=== PATIENT | male | born 1950 | race Caucasian/White ===

== ENCOUNTER 2023-01-22 21:47 | Inpatient (IN) | payer MEDICARE, SELFPAY ==
[~2023-01-22 21:47] MED LIST: Iopamidol-370 76% 500 ML MDV (1 ML CHARGE) ONE
[2023-01-22] MEDS ORDERED: fentaNYL 50 mcg/mL 1 mL Vial ONE (22:01)
[2023-01-22 22:05] LABS: #Monocytes 0.8 thou/uL (0.11-0.59); #Neutrophils 7.4 thou/uL (1.40-6.50); %Basophils 0.2 % (0.0-1.0); %Eosinophils 0.4 % (0.0-10.0); %Lymphocytes 7.8 % (21.0-51.0); %Monocytes 8.6 % (0.0-10.0); %Neutrophils 82.7 % (42.0-75.0); Hematocrit 29.1 % (42.0-52.0); Hemoglobin 9.6 g/dL (14.0-18.0); Mean Corpuscular Hemoglobin 28.4 pg (27.0-31.0); Mean Corpuscular Volume 86.1 fl (78.0-98.0); Platelet Count 269 10x3/uL (130-400); RBC Distribution Width 13.8 % (11.5-14.5); Red Blood Cell (RBC) Count 3.38 mill/uL (4.70-6.10)
[2023-01-22 22:16] LABS: INR-International Normal Ratio 2.4; PTT 33.3 sec (22.9-36.1); Prothrombin Time 27.4 sec (12.0-14.7)
[2023-01-22 22:27] LABS: ALT (SGPT) 11 U/L (8-55); AST (SGOT) 28 U/L (5-34); Albumin 3.5 g/dL (3.4-4.8); Alkaline Phosphatase 74 U/L (40-110); Anion Gap 18 mmol/L (10-20); BUN (Urea Nitrogen) 17 mg/dL (8.4-25.7); Bilirubin, Total 0.8 mg/dL (0.2-1.2); Calc. Creatinine Clearance 0 mL/min (70-130); Calcium 9.3 mg/dL (7.8-10.44); Carbon Dioxide 20 mmol/L (23-31); Chloride 104 mmol/L (98-107); Estimated GFR 64; Globulin 3.3 g/dL (2.4-3.5); Glucose 111 mg/dL (80-115); Potassium 3.8 mmol/L (3.5-5.1); Protein, Total 6.8 g/dL (5.8-8.1); Sodium 138 mmol/L (136-145)
[2023-01-23] MEDS ORDERED: HumaLOG 300 UNITS/3 ML VIAL SC PRN (00:11)
[2023-01-23] MEDS ORDERED: Glucagon 1 MG/ML KIT IM PRN (00:11)
[2023-01-23] MEDS ORDERED: Ondansetron PF 4 MG/2 ML Vial IVP PRN (00:11)
[2023-01-23] MEDS ORDERED: Dextrose 5% in Water 1,000 ML IV PRN (00:11)
[2023-01-23] MEDS ORDERED: Ipratropium/Albuterol 3 ML NEB NEB PRN ×2 (00:11→00:15)
[2023-01-23] MEDS ORDERED: Dextrose 50% Abboject 50 ML SYRINGE SLOW IVP PRN (00:11)
[2023-01-23] MEDS ORDERED: Sodium Chloride 0.9% 1,000 ML IV SCH (00:15)
[2023-01-23] MEDS ORDERED: Magnesium 2 GM/50 ML BAG (IN WATER) ONE (00:48)
[2023-01-23] MEDS: Morphine 2 MG/ML VIAL SLOW IVP PRN ×2 (01:49→20:52)
[2023-01-23 02:52] VITALS: BMI 26.3
[2023-01-23] MEDS: Acetaminophen 500 MG TAB PO SCH ×4 (05:34→23:34)
[2023-01-23] MEDS: traMADol HCl 50 MG TAB PO SCH ×4 (05:35→23:34)
[2023-01-23 06:12] LABS: #Eosinphils 0.1 thou/uL (0.0-0.7); #Monocytes 0.6 thou/uL (0.11-0.59); #Neutrophils 2.8 thou/uL (1.40-6.50); %Basophils 0.4 % (0.0-1.0); %Eosinophils 2.5 % (0.0-10.0); %Lymphocytes 21.3 % (21.0-51.0); %Monocytes 12.8 % (0.0-10.0); %Neutrophils 62.8 % (42.0-75.0); Hematocrit 26.5 % (42.0-52.0); Hemoglobin 8.6 g/dL (14.0-18.0); Mean Corpuscular HGB CONC 32.5 g/dL (32.0-36.0); Mean Corpuscular Hemoglobin 28.7 pg (27.0-31.0); Mean Corpuscular Volume 88.3 fl (78.0-98.0); Mean Platelet Volume 9.5 fL (7.4-10.4); Platelet Count 211 10x3/uL (130-400); RBC Distribution Width 13.9 % (11.5-14.5); White Blood Cell (WBC) Count 4.5 10x3/uL (4.8-10.8)
[2023-01-23 06:38] LABS: Phosphorus 4.3 mg/dL (2.3-4.7)
[2023-01-23 06:39] LABS: Anion Gap 14 mmol/L (10-20); BUN (Urea Nitrogen) 15 mg/dL (8.4-25.7); Calc. Creatinine Clearance 81 mL/min (70-130); Calcium 8.7 mg/dL (7.8-10.44); Carbon Dioxide 20 mmol/L (23-31); Chloride 107 mmol/L (98-107); Estimated GFR 71; Glucose 64 mg/dL (80-115); Magnesium 1.5 mg/dL (1.6-2.6); Potassium 3.6 mmol/L (3.5-5.1); Sodium 137 mmol/L (136-145)
[2023-01-23] MEDS: Famotidine 20 MG TAB PO SCH ×2 (09:14→20:49)
[2023-01-23] MEDS: Senokot S 8.6-50 MG TAB PO SCH ×2 (09:14→20:49)
[2023-01-24] MEDS: traMADol HCl 50 MG TAB PO SCH ×4 (05:16→22:30)
[2023-01-24] MEDS: Acetaminophen 500 MG TAB PO SCH ×4 (05:16→22:31)
[2023-01-24] MEDS: Senokot S 8.6-50 MG TAB PO SCH ×2 (08:49→21:43)
[2023-01-24] MEDS: Famotidine 20 MG TAB PO SCH ×2 (08:49→21:43)
[2023-01-24] MEDS: Cyclobenzaprine 10 MG TAB PO PRN (21:43)
[2023-01-25] MEDS: Acetaminophen 500 MG TAB PO SCH ×4 (06:06→22:17)
[2023-01-25] MEDS: traMADol HCl 50 MG TAB PO SCH ×4 (06:07→22:53)
[2023-01-25] MEDS: Senokot S 8.6-50 MG TAB PO SCH ×2 (09:17→20:18)
[2023-01-25] MEDS: Magnesium Oxide 400 MG TAB PO SCH ×2 (09:17→20:18)
[2023-01-25] MEDS: Cyclobenzaprine 10 MG TAB PO PRN (20:17)
[2023-01-25] MEDS: traMADol HCl 50 MG TAB PO PRN (20:18)
[2023-01-26] MEDS: traMADol HCl 50 MG TAB PO SCH ×2 (05:24→12:22)
[2023-01-26] MEDS: Acetaminophen 500 MG TAB PO SCH ×2 (05:25→12:21)
[2023-01-26] MEDS: Senokot S 8.6-50 MG TAB PO SCH (08:14)
[2023-01-26] MEDS: Magnesium Oxide 400 MG TAB PO SCH (08:14)
[2023-01-26] MEDS: traMADol HCl 50 MG TAB PO PRN (09:15)
[2023-01-26 12:24] VITALS: BP 114/66; TEMP 97.8
== END 2023-01-26 15:46 | disposition home or self-care (01) | DRG 563 ==
LOC: ERS 21:47 → SURG B 23:50 → OBSVTOIN 01-23 00:11
PROVIDERS: ADMIT Surgery; ATTEND Surgery
DX: S82.842A Displaced bimalleolar fracture of left lower leg, initial encounter for closed fracture (principal); M25.472 Effusion, left ankle; R09.02 Hypoxemia; E83.42 Hypomagnesemia; I48.91 Unspecified atrial fibrillation; M19.072 Primary osteoarthritis, left ankle and foot; I10 Essential (primary) hypertension; E11.9 Type 2 diabetes mellitus without complications; K59.00 Constipation, unspecified; W55.29XA Other contact with cow, initial encounter; Z59.01 Sheltered homelessness
CPT/HCPCS: 36415; 36416; 70450; 71045; 71260; 72125; 80048; 80053; 83735; 84100; 84484; 85025; 85610; 85730; 93005; G0390; J2272; J3010; J3475; J7050; Q9967